=== PATIENT | female | born 2000 | race African-American/Black ===

== ENCOUNTER 2020-12-18 16:25 | Emergency (ER) | payer OTHER, SELFPAY ==
--- NOTE | ~2020-12-18 | US_ITS ---
US OB <= 14 weeks fetus DATE: 12/18/2020 17:00 INDICATION: Abdominal pain TECHNIQUE: Real-time imaging and Doppler analysis COMPARISON: None FINDINGS: The uterus measures 11.5 cm height, up to 6.6 cm AP and 7.0 cm transverse dimension. Intrauterine gestational sac. 5 jean intrauterine gestation with heart rate of 117 bpm Schlater-rump length of 0.41 cm, consistent with 6 weeks 1 day estimated findings. Mean sac diameter is 1.55 cm with estimated gestational age of 6 weeks 2 days. Right ovary measures 3.9 x 3.2 x 2.5 cm, with 2.5 x 1.6 x 1.4 cm corpus luteum cyst. Left ovary is not visualized. IMPRESSION: Estimated gestational age of 6 weeks 1 day +/- 4 days; MISSY: Reviewed, dictated and finalized at [facility]. Reviewed, dictated and finalized at location [facility]. IMPRESSION: Estimated gestational age of 6 weeks 1 day +/- 4 days; MISSY: 022
[2020-12-18 16:22] VITALS: BP 135/79; PULSE 80; RESP 21; TEMP 36.7; O2SAT 100
--- NOTE | 2020-12-18 16:35 | ED.ABDPAIN ---
HPI - Abdominal Pain General Chief Complaint: Abdominal Pain Stated Complaint: abd pain History of Present Illness HPI narrative: Abdominal pain for the past 3 days. Worst in the epigastrium, but radiates throughout the abdomen. Feels raw. Associated with nausea and vomiting. She is approximately 8 weeks . She has never had this pain before. No dysuria, hematuria, vaginal bleeding/discharge, fever. Related Data Allergies Allergy/AdvReac Type Severity Reaction Status Date / Time No Known Allergies Allergy Unverified 04/30/18 16:38 Review of Systems Review of Systems: All systems reviewed & are unremarkable except as noted in HPI and below Constitutional: Constitutional: Denies chills and Denies fever(s) ENT: Reports system reviewed and no additional complaints, except as documented Cardiovascular: Cardiovascular: Denies chest pain Respiratory: Respiratory: Denies dyspnea Gastrointestinal: Gastrointestinal: Reports as per HPI Genitourinary: Genitourinary: Reports as per HPI Musculoskeletal: Musculoskeletal: Reports myalgias Neurologic: Reports weakness Exam Const: General: no acute distress and alert Nutritional Appearance: well nourished Orientation/consciousness: patient oriented x3 HENMT: Head: normal to inspection Neck: Neck: normal visual inspection Resp: Effort & Inspection: normal respiratory effort Auscultation: clear to auscultation bilaterally Cardio: Rate: regular rate Rhythm: regular rhythm GI: Inspection: non-distended GI Palp: Yes Soft to palpation, Yes Tenderness to palpation present (GI), Yes Guarding due to palpation present (GI) (voluntary) and No Rebound tenderness present Skin: General skin exam: normal color Neuro: General: patient oriented x3, moves all extremities, no focal motor deficits and CN's II-XI intact bilaterally Speech: normal speech Extrem: General: normal to inspection Psych: Mental Status: mental status grossly normal Course Vital Signs Vital signs: Vital Signs Temperature 36.7 C 12/18/20 16:22 Pulse Rate 80 12/18/20 16:22 Respiratory Rate 21 H 12/18/20 16:22 Blood Pressure 135/79 12/18/20 16:22 Pulse Oximetry 100 12/18/20 16:22 Temperature 36.7 C 12/18/20 16:22 Pulse Rate 80 12/18/20 16:22 Respiratory Rate 21 H 12/18/20 16:22 Blood Pressure 135/79 12/18/20 16:22 Pulse Oximetry 100 12/18/20 16:22 MDM - Abdominal Pain MDM Narrative Medical decision making narrative: Labs unremarkable. 6 week IUP on ultrasound. Differential Diagnosis Differential diagnosis: Likely gastroenteritis, pancreatitis and other (ectopic, AMADOU, gastritis, PUD) Medical Records Attestation: I reviewed the patient's medical records. Lab Data Attestation: I reviewed the patient's lab results. Result diagrams: 12/18/20 17:17 12/18/20 17:17 Labs: Lab Results 12/18/20 12/18/20 12/18/20 Range/Units 17:17 17:17 17:17 WBC 9.7 (4.5-10.0) K/mm3 RBC 3.44 L (4.2-5.4) M/mm3 Hgb 10.7 L (12.0-15.0) g/dL Hct 31.7 L (37.0-47.0) % MCV 92.2 (80-100) fl MCH 31.1 (26-34) pg MCHC 33.8 (32-36) g/dl RDW 13.7 (11.5-14.5) % Plt Count 268 (150-375) k/mm3 MPV 9.8 (7.4-10.4) fl Immature Gran % (Auto) 0.4 (0-0.5) % Neut % (Auto) 79.9 H (45.5-73.1) % Lymph % (Auto) 15.2 L (18.3-44.2) % [place] % (Auto) 4.1 (2.6-8.5) % Eos % (Auto) 0.3 (0-4.4) % Baso % (Auto) 0.1 L (0.2-1.2) % Lymph # (Auto) 1.47 (0.9-3.2) K/mm3 [place] # (Auto) 0.4 (0.1-0.6) K/mm3 Eos # (Auto) 0.0 (0-0.3) K/mm3 Baso # (Auto) 0.0 (0.0-0.1) K/mm3 Abs Immat Gran (auto) 0.04 H (0.00-0.031) K/mm3 Absolute Neuts (auto) 7.7 H (1.3-6.7) K/mm3 Absolute Nucleated RBC 0.0 (0.0-0.012) K/mm3 Nucleated RBC % 0.0 (0.0-0.2) % PT 13.9 (11.1-14.7) Seconds INR 1.0 APTT 32.4 (22.3-36.8) SECONDS Sodium 139 (137-145) mmol/L Potassium 3.5 (
[2020-12-18 17:25] LABS: Basophils Percent Auto 0.1 % (0.2-1.2); Eosinophils Percent Auto 0.3 % (0-4.4); Hematocrit 31.7 % (37.0-47.0); Hemoglobin 10.7 g/dL (12.0-15.0); Immature Granulocyte Absolute 0.04 K/mm3 (0.00-0.031); Immature Granulocyte Percent A 0.4 % (0-0.5); Lymphocytes Absolute Auto 1.47 K/mm3 (0.9-3.2); Lymphocytes Percent Auto 15.2 % (18.3-44.2); Mean Corpuscular HGB Conc 33.8 g/dl (32-36); Mean Corpuscular Hemoglobin 31.1 pg (26-34); Mean Corpuscular Volume 92.2 fl (80-100); Mean Platelet Volume 9.8 fl (7.4-10.4); Monocytes Absolute Auto 0.4 K/mm3 (0.1-0.6); Monocytes Percent Auto 4.1 % (2.6-8.5); Neutrophils Absolute Auto 7.7 K/mm3 (1.3-6.7); Neutrophils Percent Auto 79.9 % (45.5-73.1); Platelet Count Result 268 k/mm3 (150-375); Red Blood Count 3.44 M/mm3 (4.2-5.4); Red Cell Distribution Width 13.7 % (11.5-14.5); White Blood Count 9.7 K/mm3 (4.5-10.0)
[2020-12-18 17:34] LABS: Alanine Aminotransferase 13 U/L (4-35); Albumin Level 4.9 g/dL (3.5-5.1); Alkaline Phosphatase 75 U/L (38-126); Anion Gap 11 mmol/L (8-16); Aspartate Amino Transferase 24 U/L (14-36); Bilirubin,Total 0.6 mg/dL (0.2-1.3); Blood Urea Nitrogen 5 mg/dL (7-17); Calcium 9.5 mg/dL (8.4-10.2); Carbon Dioxide 21 mmol/L (22-30); Chloride 107 mmol/L (98-107); Estimated CRCL calculation 134 ml/min; Estimated Glomerular Filt Rate > 60; Glucose 93 mg/dL (65-105); Lipase 51 U/L (23-300); Partial Thromboplastin Time 32.4 SECONDS (22.3-36.8); Potassium 3.5 mmol/L (3.4-5.0); Prothrombin Time 13.9 Seconds (11.1-14.7); Sodium 139 mmol/L (137-145)
--- NOTE | 2020-12-18 17:51 | PC.NURSE ---
patient found laying on sheet that she placed on the floor stating that being on floor helped with her pain. when asked to return to bed, patient began rolling around in bed stating that she cant stand the pain any longer. patient states she is having an tomorrow so give me something better for pain cause the baby dont matter . patient also requesting water because she cant breath. erp made aware of patients complaints of pain. no new orders
[2020-12-18] MEDS: PANTOPRAZOLE SODIUM IV 40 MG VIAL IV PUSH (18:02)
[2020-12-18] MEDS: SODIUM CHLORIDE 0.9% IV 1,000 ML 999 ML IV CONT (18:02)
--- NOTE | 2020-12-18 18:23 | PC.NURSE ---
patient refusing to stay on the stretcher or leave moniter or bp cuff in place
[2020-12-18 18:42] LABS: Add Urine Microscopic? YES; Appearance Urine Clear (Clear); Bacteria Urine Trace /hpf; Bilirubin Urine Negative (Negative); Blood Urine Negative (Negative); Color Urine Yellow (Yellow); Glucose Urine UA Negative (Negative); Ketones Urine 2+ mg/dL (Negative); Leukocyte Esterase Ur Negative LEU/UL (Negative); Mucus Urine Heavy /lpf; Nitrate Urine Negative (Negative); Protein Urine 2+ mg/dL (Negative); RBC Urine 0-2 /hpf (0-2); Squamous Epithelial Cell Urine Many /hpf (Few)
[2020-12-18 18:44] LABS: Specific Grav Ur 1.038 (1.001-1.035)
[2020-12-18] MEDS: DEXTROSE 5%/0.45% SOD CHL 1,000 ML 1000 ML IV CONT (19:31)
[2020-12-18] MEDS: ONDANSETRON HCL ODT 4 MG TABLET (20:30)
[2020-12-18] MEDS: FAMOTIDINE 20 MG TABLET (20:30)
== END 2020-12-18 20:32 | disposition home or self-care (01) ==
PROVIDERS: Emergency Provider Emergency Medicine
DX: O26.891 Other specified pregnancy related conditions, first trimester (principal); R10.13 Epigastric pain; O99.281 Endocrine, nutritional and metabolic diseases complicating pregnancy, first trimester; E86.0 Dehydration; Z3A.01 Less than 8 weeks gestation of pregnancy
CPT/HCPCS: 36415; 76801; 80053; 81001; 83690; 85025; 85610; 85730; 96361; 96365; 96375; 99284; A9270; C9113; J0131; J7030

== ENCOUNTER 2021-10-21 10:55 | Emergency (ER) | payer OTHER, SELFPAY ==
[2021-10-21 11:00] VITALS: BP 124/66; PULSE 94; RESP 16; TEMP 36.6; O2SAT 100
--- NOTE | 2021-10-21 11:54 | ED.GENADULT ---
HPI - General Adult General Chief complaint: Unspecified Stated complaint: , weak Time Seen by Provider: 10/21/21 11:45 Source: patient Mode of arrival: ambulatory Limitations: no limitations History of Present Illness HPI narrative: 21-year-old female presents today with complaints of 1 week of weakness and nausea/vomiting. Patient states she is previously seen at [facility] and was told she was on 1 visit then told she was not on another one. Patient states she does not feel any better. Last menstrual period at the end of August. Patient denies fevers, cough, abdominal pain, vaginal discharge, or urinary symptoms. Related Data Allergies Allergy/AdvReac Type Severity Reaction Status Date / Time No Known Allergies Allergy Unverified 04/30/18 16:38 Review of Systems Review of Systems: CONSTITUTIONAL: Denies fever, chills, or sweats. EYES: Denies visual changes, redness, or discharge. ENT: Denies rhinorrhea, congestion, sore throat, or otalgia. CARDIOVASCULAR: Denies chest pain, palpitations, or edema. RESPIRATORY: Denies cough or dyspnea. GASTROINTESTINAL: Nausea and vomiting. Denies abdominal pain or diarrhea. GENITOURINARY: Denies dysuria or hematuria. SKIN: Denies rash or itching. MUSCULOSKELETAL: Denies back pain, joint pain, or myalgia. NEUROLOGIC: Weak/tired. Denies headache, numbness, dizziness. PSYCHIATRIC: Denies anxiety or depression. Exam Narrative: GENERAL: Well-appearing, well-nourished, and in no acute distress. HEAD: Normocephalic, atraumatic. EYES: PERRLA and EOMI. ENT: Nares clear, no rhinorrhea or epistaxis. Mucous membranes moist. Oropharynx without tonsillar hypertrophy exudate or other lesions. Bilateral TMs pearly deleon nonbulging NECK: Supple. No adenopathy or masses. No carotid bruits or JVD CHEST: Clear to auscultation. No respiratory distress. No wheezes rales or rhonchi HEART: Regular rate and rhythm. No murmur heard. Normal peripheral pulses. ABDOMEN: Soft, nontender, nondistended, normal active bowel sounds. EXTREMITIES: Normal range of motion. No edema. SKIN: Warm, dry, no rash. NEURO: No focal deficits. Alert and oriented x3. PSYCH: Normal mood and affect. Course Reevaluation(s) Reevaluation #1: Patient feeling improved. Labs discussed. Patient instructed to continue the amoxicillin that she has at home for UTI. Date: 10/21/21 Time: 14:04 Vital Signs Vital signs: Vital Signs Temperature 36.6 C 10/21/21 11:00 Pulse Rate 94 10/21/21 11:00 Respiratory Rate 16 10/21/21 11:00 Blood Pressure 124/66 10/21/21 11:00 Pulse Oximetry 100 10/21/21 11:00 Temperature 36.6 C 10/21/21 11:00 Pulse Rate 94 10/21/21 11:00 Respiratory Rate 16 10/21/21 11:00 Blood Pressure 124/66 10/21/21 11:00 Pulse Oximetry 100 10/21/21 11:00 Medical Decision Making MDM Narrative Medical decision making narrative: HPI as noted. Patient with positive blood hCG. No abdominal pain, vaginal discharge. Patient to be discharged home with [facility] plan follow-up with primary. Patient may continue the amoxicillin as previously ordered. vitamin prescribed. Patient in agreement with plan of care. Vital Signs Vital Signs: Vital Signs Temperature 36.6 C 10/21/21 11:00 Pulse Rate 94 10/21/21 11:00 Respiratory Rate 16 10/21/21 11:00 Blood Pressure 124/66 10/21/21 11:00 Pulse Oximetry 100 10/21/21 11:00 Temperature 36.6 C 10/21/21 11:00 Pulse Rate 94 10/21/21 11:00 Respiratory Rate 16 10/21/21 11:00 Blood Pressure 124/66 10/21/21 11:00 Pulse Oximetry 100 10/21/21 11:00 Lab Data Result diagrams: 10/21/21 12:15 10/21/21 12:15 Labs: Lab Results 10/21/21 10/21/21 10/21/21 Range/Units 12:15 12:15 13:14 WBC 12.1 H (4.5-10.0) K/mm3 RBC 3.05 L (4.2-5.4) M/mm3 Hgb 9.7 L (12.0-15.0) g/dL Hct 28.2 L (37.0-47.0) % MCV 92.5 (80-100) fl MCH 31.8 (26-34) pg
[2021-10-21] MEDS: LACTATED RINGERS 1,000 ML 999 ML IV CONT (12:17)
[2021-10-21] MEDS: ONDANSETRON INJ 4 MG/2 ML VIAL IV PUSH (12:18)
[2021-10-21 12:30] LABS: Basophils Percent Auto 0.2 % (0.2-1.2); Hematocrit 28.2 % (37.0-47.0); Hemoglobin 9.7 g/dL (12.0-15.0); Immature Granulocyte Absolute 0.05 K/mm3 (0.00-0.031); Immature Granulocyte Percent A 0.4 % (0-0.5); Lymphocytes Absolute Auto 1.66 K/mm3 (0.9-3.2); Lymphocytes Percent Auto 13.7 % (18.3-44.2); Mean Corpuscular HGB Conc 34.4 g/dl (32-36); Mean Corpuscular Hemoglobin 31.8 pg (26-34); Mean Corpuscular Volume 92.5 fl (80-100); Mean Platelet Volume 9.4 fl (7.4-10.4); Monocytes Absolute Auto 0.5 K/mm3 (0.1-0.6); Monocytes Percent Auto 4.3 % (2.6-8.5); Neutrophils Absolute Auto 9.8 K/mm3 (1.3-6.7); Neutrophils Percent Auto 81.4 % (45.5-73.1); Platelet Count Result 367 k/mm3 (150-375); Red Blood Count 3.05 M/mm3 (4.2-5.4); White Blood Count 12.1 K/mm3 (4.5-10.0)
[2021-10-21 12:40] LABS: Alanine Aminotransferase 13 U/L (4-35); Albumin Level 4.2 g/dL (3.5-5.1); Alkaline Phosphatase 75 U/L (38-126); Anion Gap 11 mmol/L (8-16); Aspartate Amino Transferase 26 U/L (14-36); Bilirubin,Total 0.4 mg/dL (0.2-1.3); Blood Urea Nitrogen 6 mg/dL (7-17); Calcium 8.7 mg/dL (8.4-10.2); Carbon Dioxide 23 mmol/L (22-30); Chloride 97 mmol/L (98-107); Estimated CRCL calculation 121 ml/min; Estimated Glomerular Filt Rate > 60; Glucose 84 mg/dL (65-110); Potassium 3.4 mmol/L (3.4-5.0); Sodium 131 mmol/L (137-145)
[2021-10-21 13:25] LABS: Appearance Urine Clear (Clear); Bilirubin Urine 1+ (Negative); Blood Urine Negative (Negative); Color Urine Amber (Yellow); Glucose Urine UA Negative (Negative); Ketones Urine 4+ mg/dL (Negative); Leukocyte Esterase Ur Trace LEU/UL (Negative); Nitrate Urine Negative (Negative); Protein Urine 2+ mg/dL (Negative); Specific Grav Ur >= 1.030 (1.001-1.035); pH Urine 6.5 (5.0-9.0)
[2021-10-21 13:29] LABS: Mucus Urine Heavy /lpf; Squamous Epithelial Cell Urine Many /hpf (Few); WBC Urine 31-50 /hpf
[2021-10-21 13:33] LABS: Add Urine Microscopic? YES
== END 2021-10-21 14:35 | disposition home or self-care (01) ==
PROVIDERS: Emergency Provider Nurse Practitioner Family; PCP Obstetrics & Gynecology
DX: O23.40 Unspecified infection of urinary tract in pregnancy, unspecified trimester (principal); N39.0 Urinary tract infection, site not specified; O21.0 Mild hyperemesis gravidarum; Z3A.00 Weeks of gestation of pregnancy not specified
CPT/HCPCS: 36415; 80053; 81001; 84702; 85025; 87077; 87086; 87088; 87186; 96361; 96374; 99284; J2405; J7120

== ENCOUNTER 2023-07-25 12:59 | Observation (INO) | payer OTHER, SELFPAY ==
--- NOTE | ~2023-07-25 | CT_ITS ---
EXAMINATION: CT facial bones w con DATE: 07/25/2023 16:19 INDICATION: Right lower jaw swelling and pain. TECHNIQUE: Computed tomography (CT) of the facial bones and maxillofacial region was performed with 7 5 mL Omnipaque 350 intravenous contrast. Automated exposure control and iterative reconstruction tech nique were employed. The dose-length product was 398.17 mGy-cm. COMPARISON: None. FINDINGS: There is right face soft tissue swelling. There is mild mucosal thickening in the paranasal sinuses. Tooth 1 demonstrates a carious lesion. Tooth 3 demonstrates periapical lucencies with breec h of the buccal cortex of the alveolar process and an expansile lytic lesion extending into the maxil kathleen sinus. Tooth 16 demonstrates a carious lesion and periapical lucencies. Tooth 17 demonstrates a carious lesion and periapical lucencies. Tooth 18 demonstrates a carious lesion and periapical lucenc ies. Tooth 30 demonstrates periapical lucencies measuring 18 x 7 mm with breech of the buccal cortex of the alveolar process with 17 x 7 mm subperiosteal abscess. Tooth 31 demonstrates a carious lesion and periapical lucencies. Tooth 32 demonstrates a carious lesion. IMPRESSION: 1. Extensive dental disease including a subperiosteal abscess at tooth 30. Reviewed, dictated and finalized at location [facility]. ACTOR MACHINE OPERATOR
[2023-07-25 13:16] VITALS: BP 105/66; PULSE 116; RESP 16; TEMP 36.7; O2SAT 100
--- NOTE | 2023-07-25 13:59 | PC.NURSE ---
Pt ambulated to intake desk to report pain spreading in face.
[2023-07-25 14:16] VITALS: BP 108/69; PULSE 81; RESP 18; TEMP 36.6; O2SAT 100
--- NOTE | 2023-07-25 15:16 | ED.DENTAL ---
HPI - Dental/Oral General Chief complaint: Dental/Oral Stated complaint: toothache, swelling to lower jaw Time Seen by Provider: 07/25/23 14:15 History of Present Illness HPI Narrative: 23-year-old female present to the emergency department for evaluation of right-sided facial swelling. Patient states she was at [facility] as diagnosed with a abscess. Patient was started on vancomycin and patient was demanding to be transferred. Patient states they were unable to get transfer for and patient left. Patient was not started on oral antibiotics. Patient has been started on vancomycin at [facility]. Related Data Home Medications Medication Instructions Recorded Confirmed No Home Medications 07/27/23 07/27/23 Allergies Allergy/AdvReac Type Severity Reaction Status Date / Time No Known Allergies Allergy Unverified 07/27/23 11:18 Review of Systems Review of Systems: All systems reviewed & are unremarkable except as noted in HPI and below PMFSH Surgical History Surgical History (Updated 07/27/23 @ 15:09 by Che Joseph PA-C) History of section Family History Family History Mother Hypertension Grandparent Hypertension Heart failure Social History Social History Smoking status: Never smoker Second hand tobacco smoke exposure: No Alcohol intake: never Substance use: current Substance use type: marijuana Last use: 2-3 blunts per day Do You Feel Safe in your Home?: Yes Lack of Transportation: No Lack of Food: Never True Current Housing: I Have Housing Concerned About Future Housing: No Difficulty Paying Gas/Electric Bills: No Difficulty Paying for Meds: No Currently Unemployed: No Education: High School Diploma/GED Difficulty w/ Childcare or Family Care: YES Spiritual care concerns: No Exam Narrative: APPEARANCE: Well appearing, no pain, no distress, well-nourished. HEAD: normocephalic, atraumatic. Right lower mandible swelling EYES: PERRLA/EOMI, conjunctivae clear. NOSE: Normal no drainage EARS:TMS clear with good light reflex. THROAT: Pharynx clear, no exudate. NECK: Supple. No adenopathy, no masses. RESPIRATORY: Airway patent, respirations nonlabored. Clear to auscultation bilaterally, no rales, rhonchi, wheezing. CARDIOVASCULAR: Regular rate and rhythm without murmurs rubs or gallops. ABDOMINAL: Soft, nontender, nondistended, normal bowel sounds MUSCULOSKELETAL: Moves all extremities. Strength/ROM intact, No edema, No calf tenderness. NEURO: Alert. Cranial nerves II through XII intact. Good gait. Good coordination SKIN: Warm, dry. Normal Color Course Course Emergency Course: 23-year-old female presenting to the emergency department for evaluation of right-sided facial swelling. Patient does have a leukocytosis of 15.2 and hemoglobin of 9.6, hemoglobin is similar to her previous baseline. CT scan was concerning for subperiosteal abscess. Patient had been treated with clindamycin prior to the results of the CT but was switched to vancomycin and cefepime. Patient had requested to go to [facility]. Patient was accepted to [facility] to the hospitalist service and bed availability is pending. Patient was accepted by Dr. Wang Reevaluation(s) Reevaluation #1: Patient is still awaiting a bed at [facility] I discussed case with hospitalist patient was accepted for admission to [facility] while she is still waiting for a bed at [facility]. Vital Signs Vital signs: Vital Signs Temperature 98.1 F 07/25/23 13:16 Pulse Rate 116 H 07/25/23 13:16 Respiratory Rate 16 07/25/23 13:16 Blood Pressure 105/66 07/25/23 13:16 Pulse Oximetry 100 07/25/23 13:16 Oxygen Delivery Room Air 07/25/23 13:16 Temperature 97.5 F L 07/27/23 14:00 Pulse Rate 108 H 07/27/23 14:00 Respiratory Rate 16 07/27/23 14:00 Blood Pressur
[2023-07-25] MEDS: HYDROmorphone HCL INJ (*CRX) 1 MG/ML SYR 0.5 MG IV PUSH (15:38)
[2023-07-25] MEDS: CLINDAMYCIN 600 MG/D5W 50 ML 600 MG/50 ML PIGGYBACK 100 MG IVPB (15:39)
[2023-07-25 15:44] VITALS: BP 115/72; PULSE 81; RESP 16; O2SAT 100
[2023-07-25 15:52] LABS: Basophils Percent Auto 0.1 % (0.2-1.2); Eosinophils Percent Auto 0.1 % (0-4.4); Hematocrit 29.9 % (37.0-47.0); Hemoglobin 9.6 g/dL (12.0-15.0); Immature Granulocyte Absolute 0.05 K/mm3 (0.00-0.031); Immature Granulocyte Percent A 0.3 % (0-0.5); Lymphocytes Absolute Auto 2.97 K/mm3 (0.9-3.2); Lymphocytes Percent Auto 19.5 % (18.3-44.2); Mean Corpuscular HGB Conc 32.1 g/dl (32-36); Mean Corpuscular Hemoglobin 31.8 pg (26-34); Mean Platelet Volume 10.6 fl (7.4-10.4); Monocytes Percent Auto 6.3 % (2.6-8.5); Neutrophils Absolute Auto 11.2 K/mm3 (1.3-6.7); Neutrophils Percent Auto 73.7 % (45.5-73.1); Platelet Count Result 220 k/mm3 (150-375); Red Blood Count 3.02 M/mm3 (4.2-5.4); Red Cell Distribution Width 12.3 % (11.5-14.5); White Blood Count 15.2 K/mm3 (4.5-10.0)
[2023-07-25 16:04] LABS: Alanine Aminotransferase 14 U/L (6-35); Albumin Level 4.6 g/dL (3.5-5.1); Alkaline Phosphatase 66 U/L (38-126); Anion Gap 10 mmol/L (8-16); Aspartate Amino Transferase 18 U/L (14-36); Bilirubin,Total 0.6 mg/dL (0.2-1.3); Blood Urea Nitrogen 8 mg/dL (7-17); Calcium 8.7 mg/dL (8.4-10.2); Carbon Dioxide 23 mmol/L (22-30); Chloride 106 mmol/L (98-107); Estimated CRCL calculation 101 ml/min; Estimated Glomerular Filt Rate > 60; Glucose 91 mg/dL (65-110); Potassium 3.3 mmol/L (3.4-5.0); Sodium 139 mmol/L (137-145)
[2023-07-25] MEDS: KETOROLAC 30 MG/ML VIAL (*BKC) IV PUSH (17:02)
[2023-07-25 18:19] VITALS: BP 122/73; PULSE 86; RESP 18; O2SAT 100
[2023-07-25] MEDS: CEFEPIME 1 GM/NS 50 ML 1 GM/50 ML BAG IVPB (19:12)
[2023-07-25] MEDS: KETOROLAC 15 MG/ML VIAL (*BKC) IV PUSH (21:17)
[2023-07-26] VITALS (7 sets, daily range): BP systolic 102–137; BP diastolic 58–82; PULSE 74–91; RESP 16–18; TEMP 36.5–36.7; O2SAT 96–100
[2023-07-26] MEDS: VANCOMYCIN 1,250 MG/NS 250 ML 1,250 MG/250 ML BAG 166.67 MG IVPB ×2 (02:00→11:22)
[2023-07-26] MEDS: HYDROmorphone HCL INJ (*CRX) 1 MG/ML SYR 0.5 MG IV PUSH ×3 (02:01→09:23)
[2023-07-26] MEDS: KETOROLAC 15 MG/ML VIAL (*BKC) IV PUSH ×2 (04:45→11:22)
--- NOTE | 2023-07-26 05:47 | PC.NURSE ---
Pt requesting to see EDP regarding pain she is experiencing on the R side of her face. Pt has been receiving meds as ordered and still in pain. Pt states she feels as if her face is going to explode . EDP Dr. Altamirano made aware.
[2023-07-26] MEDS: CEFEPIME 2 GM/NS 50 ML 2 GM/50 ML BAG IVPB ×2 (06:30→18:14)
[2023-07-26 07:02] LABS: Estimated CRCL calculation 119 ml/min; Estimated Glomerular Filt Rate > 60
[2023-07-26] MEDS: HYDROcodone/acetaminophen (*CRX) 5-325 MG TABLET 1 TAB PO ×3 (13:19→22:38)
[2023-07-26] MEDS: IBUPROFEN 400 MG TABLET 800 MG PO (17:50)
--- NOTE | 2023-07-26 23:26 | PC.NURSE ---
Spoke with Lupe from [facility] transfer center for update. Still no room available.
[2023-07-27] MEDS: KETOROLAC 15 MG/ML VIAL (*BKC) IV PUSH ×3 (02:08→17:38)
[2023-07-27] MEDS: VANCOMYCIN 1,500 MG/NS 500 ML 1,500 MG/500 ML BAG 250 MG IVPB ×2 (02:09→10:46)
--- NOTE | 2023-07-27 02:16 | PC.NURSE ---
Verbal order for viscous lidocaine given by Dr Altamirano for patient to put on her gum for pain.
[2023-07-27 06:54] LABS: Estimated CRCL calculation 119 ml/min; Estimated Glomerular Filt Rate > 60
[2023-07-27] MEDS: CEFEPIME 2 GM/NS 50 ML 2 GM/50 ML BAG IVPB (07:59)
[2023-07-27] MEDS: HYDROcodone/acetaminophen (*CRX) 5-325 MG TABLET 1 TAB PO ×3 (08:10→16:10)
[2023-07-27 08:24] VITALS: BP 115/77; PULSE 76; RESP 16
--- NOTE | 2023-07-27 08:42 | PC.NURSE ---
bed status update - [facility] remains at full capacity, remains on wait list
[2023-07-27] MEDS: ONDANSETRON INJ 4 MG/2 ML VIAL IV PUSH (08:50)
--- NOTE | 2023-07-27 11:32 | ADMGEN ---
This patient, Dayne Carrero, was admitted to 3 [facility] Surg Room 321-01. Patient/family oriented to hospital policies and general routines including ID bracelet, bed and alarms, visiting hours, pain management, procedures, bathroom and other care routines, personal items, smoking policy, room service/diet, and visiting hours. Information on how to activate the Rapid Response Team has been discussed. Patient/Family are encouraged to report perceived risks to care and to ask questions if they do not understand what they are told or what they should do.
[2023-07-27 11:35] VITALS: BMI 25.8
[2023-07-27 14:00] VITALS: BP 117/74; PULSE 108; RESP 16; TEMP 36.4; O2SAT 100
--- NOTE | 2023-07-27 15:07 | P.HP_ITS ---
H&P: HPI History of Present Illness Date/Time: 07/27/23 15:05 Chief Complaint: Right lower jaw swelling and dental pain. Narrative: This is a 23-year-old female who presented to the emergency department in the [facility] on 07/25/2023 for evaluation of right lower jaw swelling and dental pain. The patient provides the following history. [facility] Surgical History Surgical History (Updated 07/27/23 @ 15:09 by Che Joseph PA-C) History of section Family History Family History Mother Hypertension Grandparent Hypertension Heart failure Social History Social History Smoking status: Never smoker Second hand tobacco smoke exposure: No Alcohol intake: never Substance use: current Substance use type: marijuana Last use: 2-3 blunts per day Do You Feel Safe in your Home?: Yes Lack of Transportation: No Lack of Food: Never True Current Housing: I Have Housing Concerned About Future Housing: No Difficulty Paying Gas/Electric Bills: No Difficulty Paying for Meds: No Currently Unemployed: No Education: High School Diploma/GED Difficulty w/ Childcare or Family Care: YES Spiritual care concerns: No Meds Home Medications and Allergies Home Medications Medication Instructions Recorded Confirmed Type No Home Medications 07/27/23 07/27/23 History Allergies Allergy/AdvReac Type Severity Reaction Status Date / Time No Known Allergies Allergy Unverified 07/27/23 11:18 Vital Signs Vital Signs - 24 hr 07/26/23 15:17 07/26/23 23:11 07/27/23 08:24 Temperature 97.7 F Pulse Rate 90 81 76 Respiratory Rate 18 16 Blood Pressure 106/61 115/58 L 115/77 Pulse Oximetry 96 100 H&P: Results Labs Labs: [facility] 07/27/23 06:40 Creatinine 0.50 L Assessment and Plan Assessment and plan (1) Subperiosteal abscess of jaw: Code(s): M27.2 - Inflammatory conditions of jaws Status: Acute (2) Dental disease: Code(s): K08.9 - Disorder of teeth and supporting structures, unspecified Status: Acute Quality VTE Prophylaxis VTE prophylaxis: mechanical ordered The patient has been admitted under observation status.
--- NOTE | 2023-07-27 15:42 | ADMGEN ---
This patient, Dayne Carrero, was admitted to 3 [facility] Surg Room 321-01. Patient/family oriented to hospital policies and general routines including ID bracelet, bed and alarms, visiting hours, pain management, procedures, bathroom and other care routines, personal items, smoking policy, room service/diet, and visiting hours. Information on how to activate the Rapid Response Team has been discussed. Patient/Family are encouraged to report perceived risks to care and to ask questions if they do not understand what they are told or what they should do. This nurse got report from Dot in ER.
[2023-07-27] MEDS: AMPICILLIN SULB 3 GM/NS 100 ML 3 GM/100 ML VIAL IVPB (17:01)
--- NOTE | 2023-07-27 17:37 | PM.SD2 ---
Same Day Admit/Disch: HPI History of Present Illness Chief complaint: Right jaw and tooth pain. Narrative: This is a pleasant 23-year-old female who presented to the emergency department via private vehicle from home on 07/25/2023 for evaluation of right jaw and tooth pain. The patient provides the following history. On Tuesday she noticed a small pimple at the gum line on the right lower buccal mucosa. As the day progressed she developed swelling of the right side of the jaw which has gotten progressively worse. She goes on to say that this has happened intermittently over the past 6 years since she had a filling done in that tooth when she lived in [place]. It was always self-limiting and she has not been evaluated by dentist since that time. She was seen at [facility] on Tuesday and they told her that they could not help her and that she needed to go to a different hospital for IV antibiotics. She presented to our ED on Tuesday at which time she was found to have an elevated WBC count and a CT of the face showing extensive dental disease including a subperiosteal abscess at tooth 30. ED physician spoke with an oral surgeon at [facility] and she was accepted at their facility however she has spent the last 2 days in the ED awaiting transfer and the morning hospitalist on-call accepted her in this setting, pending transfer. At the time my evaluation she is resting comfortably but continues to have a pressure-like pain in the jaw. The swelling seems to be little bit worse but it has not extended to the floor of the mouth or to the neck. She has no difficulty swallowing, tolerating secretions, and she has no shortness of breath. She denies fever, chills, and sweats. She was started on cefepime and vancomycin and was admitted to the medical floor. [facility] Past Medical History Medical History (Updated 07/28/23 @ 01:04 by Che Joseph PA-C) Anemia Surgical History Surgical History History of section Family History Family History Mother Hypertension Grandparent Hypertension Heart failure Social History Social History (Updated 07/28/23 @ 00:49 by Che Joseph PA-C) Social History: Surrogate medical decision maker: Nakul Brenttiki. Code status: Full code. Smoking status: Never smoker Second hand tobacco smoke exposure: No Alcohol intake: never Substance use: current Substance use type: marijuana Last use: 2-3 blunts per day Do You Feel Safe in your Home?: Yes Lack of Transportation: No Lack of Food: Never True Current Housing: I Have Housing Concerned About Future Housing: No Difficulty Paying Gas/Electric Bills: No Difficulty Paying for Meds: No Currently Unemployed: No Education: High School Diploma/GED Difficulty w/ Childcare or Family Care: YES Additional living arrangements comments: Lives with tiki and their children. Spiritual care concerns: No Same Day Admit/Disch: Med Pre-admit Medications Home Medications Medication Instructions Recorded Confirmed Type amoxicillin 875 mg-potassium 1 tablet PO Q12H #14 tabs 07/27/23 Rx clavulanate 125 mg tablet hydrocodone 5 mg-acetaminophen 325 1 tablet PO Q6H PRN pain #10 tabs 07/27/23 Rx mg tablet Review of Systems Review of Systems Twelve systems were reviewed. No fever, chills, or sweats. No cold or flu symptoms. No chest pain or shortness of breath. Last menstrual period was approximately 1 week ago. Except as documented, all other systems were reviewed and are negative. Exam Narrative: General: A well-developed, nontoxic-appearing female sitting up in bed in no acute distress. Weight: 66.1 kg. BMI: 25.8. HEENT: PERRL, EOMI. Sclera anicteric. Oral mucosa moist. There is swelling and area of fluctuance on the buccal side of the right lower mandible. There is gross sw
== END 2023-07-27 18:10 | disposition home or self-care (01) ==
LOC: ANHED 19:21 → ANH3MEDSUR 07-27 10:13
PROVIDERS: Admitting Provider Internal Medicine; Emergency Provider Emergency Medicine; Visit Provider Internal Medicine
DX: M27.2 Inflammatory conditions of jaws (principal); K08.89 Other specified disorders of teeth and supporting structures; D64.9 Anemia, unspecified; F12.90 Cannabis use, unspecified, uncomplicated; Z79.891 Long term (current) use of opiate analgesic; Z79.899 Other long term (current) drug therapy
CPT/HCPCS: 36415; 70487; 80053; 80202; 82565; 85025; 96365; 96366; 96367; 96375; 96376; 99285; A9270; G0378; G0379; J0295; J0692; J1170; J1885; J2405; J3370; Q9967